=== PATIENT | female | born 1980 | race Caucasian/White ===

== ENCOUNTER 2019-04-16 18:04 | Emergency (ER) | payer MEDICAID ==
[2019-04-16] MEDS: PENICILLIN G BENZ 1.2 MIL UNIT SYG IM (19:15)
[2019-04-16] MEDS: ACETAMINOPHEN 325 MG TAB PO (19:34)
== END 2019-04-16 19:36 | disposition home or self-care (01) ==
LOC: FTE 18:04
DX: J02.9 Acute pharyngitis, unspecified (principal); R11.0 Nausea
CPT/HCPCS: 96372; 99284-25